=== PATIENT | female | born 1955 | race Caucasian/White ===

== ENCOUNTER 2016-08-05 11:43 | Emergency (ER) | payer BC, OTHER ==
[2016-08-05] MEDS ORDERED: Ibuprofen TAB* 400 MG PO ONE (13:23)
[2016-08-05] MEDS ORDERED: Ibuprofen TAB* 800 MG PO ONE (13:24)
[2016-08-05] MEDS ORDERED: Cyclobenzaprine TAB* 10 MG PO ONE (14:08)
--- NOTE | 2016-08-05 14:32 | RAD ---
Indication: Trauma, back injury. 5 views of the lumbar spine are reviewed. Vertebral bodies appear normal in height. There is disc space narrowing at L2-L3, L4-L5 and L5-S1 with endplate sclerosis. Vacuum disc phenomenon is noted at L2-L3. There is some straightening of the normal lordosis. The pedicles appear otherwise intact. IMPRESSION: Degenerative disc disease at L2-L3, L4-L5 and L5-S1.
--- NOTE | 2016-08-05 16:12 | RAD ---
Indication: Triquetral region pain post fall. First through fifth metacarpal phalangeal joint pain. Comparison: None. Technique: AP and lateral views LEFT hand. Report: No acute fracture or articular malalignment. Polyarticular mild osteoarthritis most prominent at the first and second metacarpal phalangeal joints and the distal interphalangeal joints with mild osteophytosis and joint space narrowing. Small accessory ossicle visualized approximating the volar base of the third middle phalanx noted. Unremarkable soft tissue contours. IMPRESSION: No traumatic injury evident.
--- NOTE | 2016-08-05 16:28 | ED ---
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 Vidhi tried to brace the patient but they both toppled over, with the patient landing on Vidhi. During the fall, Vidhi fell onto the wheelchair she was trying to help the patient out of, striking her back against the arm rail. She has pain in her right low back and left palm, where she caught herself. She denies hitting her head and was able to get up after the fall. No N/T, and she is able to ambulate. Her left palm hurts and her back is spasming. - History of Current Complaint Chief Complaint: EDBackInjuryPain Stated Complaint: LT HAND/BACK INJURY Time Seen by Provider: 08/05/16 13:04 Hx Obtained From: Patient Onset/Duration: Sudden Onset, Lasting Hours, Still Present Onset/Duration: Traumatic Timing: Constant Severity Initially: Severe Severity Currently: Severe Pain Intensity: 10 Character: Sharp, Aching Aggravating Symptom(s): Movement Alleviating Symptom(s): Nothing Associated Signs And Symptoms: Positive: Pain with Weight Bearing Related History: Occupational Injury - Allergies/Home Medications Allergies/Adverse Reactions: Allergies Allergy/AdvReac Type Severity Reaction Status Date / Time Red Dye Allergy Hives Verified 08/05/16 11:49 adhesive tape Allergy Rash Uncoded 08/05/16 13:17 PMH/Surg Hx/FS Hx/Imm Hx Cardiovascular History: Reports: Hx Pacemaker/ICD - PACEMAKER PLACEMENT 15 , Other Cardiovascular Problems/Disorders - possible cardiomyopathy Infectious Disease History: No Infectious Disease History: Denies: Traveled Outside the [place] in Last 30 Days - Family History Known Family History: Positive: None - Social History Occupation: Employed Full-time Lives: With Family Alcohol Use: None Substance Use Type: Reports: None Smoking Status (MU): Never Smoked Tobacco Review of Systems Positive: Myalgia - right low back and left palm. Negative: Edema Negative: Bruising Negative: Weakness, Paresthesia, Numbness All Other Systems Reviewed And Are Negative: Yes Physical Exam Triage Information Reviewed: Yes Vital Signs On Initial Exam: Initial Vitals Temp Pulse Resp BP Pulse Ox 98.3 F 73 18 131/62 100 08/05/16 11:49 08/05/16 11:49 08/05/16 11:49 02/24/17 11:49 08/05/16 11:49 Vital Signs Reviewed: Yes Appearance: Positive: Well-Appearing, Pain Distress, Obese Skin: Positive: Warm, Skin Color Reflects Adequate Perfusion, Dry, Soft Head/Face: Positive: Normal Head/Face Inspection Eyes: Positive: EOMI, ANGELA, Conjunctiva Clear ENT: Positive: Hearing grossly normal Neck: Positive: Supple, Nontender Respiratory/Lung Sounds: Positive: Breath Sounds Present Cardiovascular: Positive: RRR Abdomen Description: Positive: Nontender, Soft Musculoskeletal: Positive: Strength/ROM Intact - with pain in left wrist, Pain @ - TTP right lumbar muscles and left ulnar aspect of the palm over the triquetrium. Negative: Edema Left, Edema Right Neurological: Positive: Sensory/Motor Intact, Alert, Oriented to Person Place, Time, NV Bundle Intact Distally, Abnormal Gait - mild limp Psychiatric: Positive: Affect/Mood Appropriate AVPU Assessment: Alert Diagnostics - Vital Signs Vital Signs Temp Pulse Resp BP Pulse Ox 08/05/16 11:49 98.3 F 73 18 131/62 100 - Laboratory Lab Statement: Any lab studies that have been ordered have been reviewed, and results considered in the medical decision making process. - Radiology No standard instances Xray Interpretation: No Acute Changes Radiology Interpretation Completed By: Radiologist Back Pain Course/Dx - Diagnoses Differential Diagnosis/HQI/PQRI: Positive: Arthritis, Cauda Equina Syndrome, Fracture, Herniated Disc, Strain, Sprain Provider Diagnoses: Low back strain, Left hand pain Discharge - Discharge Plan Condition: Stable Disposition: HOME Prescriptions: Cyclobenzaprine TAB* [Flexeril TAB*] 10 mg PO TID PRN #15 tab PRN Reason: Pain Patient Education Materials: Low Back Strain (ED) Forms: *Work Release Referrals: Jesus Merida MD [Primary Care Provider] - Additional Instructions: Please use the muscle relaxer as needed in combination with ibuprofen 600mg three times daily with meals until your pain improves. Follow-up with your primary care provider if your symptoms do not begin to improve in the next 5-7 days. Return to the emergency department if your symptoms worsen.
[2016-08-05 16:33] VITALS: BP 116/56
== END 2016-08-05 18:29 | disposition home or self-care (01) ==
LOC: ED 11:43
DX: M51.37 Other intervertebral disc degeneration, lumbosacral region (principal)
CPT/HCPCS: 72110; 99282; A9270-GY